=== PATIENT | female | born 1995 | race Caucasian/White ===

== ENCOUNTER 2017-02-25 13:50 | Emergency (ER) | payer OTHER ==
[~2017-02-25] VITALS: Ht 162.6 cm; Wt 93.0 kg
[~2017-02-25 13:50] MED LIST: DENIES
[2017-02-25 13:53] VITALS: Ht 162.6 cm; Wt 93.0 kg
[2017-02-25] MEDS ORDERED: ACETAMINOPHEN 325 MG TAB PO STA (14:08)
[2017-02-25] MEDS ORDERED: SOD CHLORIDE 0.9% 1,000 ML IV ONE (14:30)
[2017-02-25] MEDS ORDERED: IBUPROFEN 600 MG TAB PO ONE (14:30)
[2017-02-25 15:01] LABS: ADD SCAN DIFF NO
--- NOTE | 2017-02-25 15:03 | RADRPT ---
PROCEDURE: XR Chest. CLINICAL INDICATION: Sepsis TECHNIQUE: Single frontal chest x-ray. COMPARISON: None. FINDINGS: The lungs are clear of acute infiltrates, edema, effusions, or masses.. The cardiomediastinal silho uette is unremarkable. The osseous structures are intact. IMPRESSION: No acute cardiopulmonary disease. RPTAT: QQ .Austin Al MD, MD Date Time Electronically viewed and signed by .Austin Al MD, MD on 02/25/2017 15:03 .L/
[2017-02-25 15:09] LABS: BASOPHILS % 0.2 % (0.0-2.0); EOSINOPHILS # 0.1 10^3/ul (0.0-0.5); EOSINOPHILS % 0.5 % (0.0-7.0); HEMATOCRIT 43.2 % (37.0-47.0); HEMOGLOBIN 14.4 g/dl (12.0-16.0); LYMPHOCYTES # 1.6 10^3/ul (0.8-2.9); LYMPHOCYTES % 12.7 % (15.0-51.0); MEAN CORPUSCULAR HEMOGLOBIN 28.9 pg (29.0-33.0); MEAN CORPUSCULAR HGB CONC 33.3 g/dl (32.0-37.0); MEAN CORPUSCULAR VOLUME 86.6 fl (82.0-101.0); MEAN PLATELET VOLUME 9.9 fl (7.4-10.4); MONOCYTE # 1.4 10^3/ul (0.3-0.9); MONOCYTES % 11.6 % (0.0-11.0); NEUTROPHIL # 9.2 10^3/ul (1.6-7.5); NEUTROPHILS % 74.8 % (39.0-77.0); PLATELET COUNT 304 10^3/UL (140-415); RED BLOOD COUNT 4.99 10^6/ul (4.20-5.40); RED CELL DISTRIBUTION WIDTH 12.6 % (11.5-14.5); WHITE BLOOD COUNT 12.3 10^3/ul (4.8-10.8)
[2017-02-25 15:16] LABS: ADD UMIC NO; URINE BILIRUBIN (Dip) NEGATIVE (NEGATIVE); URINE BLOOD (Dip) NEGATIVE (NEGATIVE); URINE COLOR LT. YELLOW (YELLOW); URINE GLUCOSE (Dip) NEGATIVE (NEGATIVE); URINE KETONES (Dip) NEGATIVE (NEGATIVE); URINE LEUKOCYTE ESTERASE (Dip) NEGATIVE (NEGATIVE); URINE NITRITE (Dip) NEGATIVE (NEGATIVE); URINE TOTAL PROTEIN (Dip) NEGATIVE (NEGATIVE); URINE UROBILINOGEN (Dip) 0.2 E.U./dL (0.1-1.0)
[2017-02-25 15:31] LABS: ALBUMIN/GLOBULIN RATIO 1.37
[2017-02-25 15:37] LABS: ALBUMIN 5.1 g/dl (3.3-4.9); BILIRUBIN,INDIRECT 0.4 mg/dl (0-1.1); BILIRUBIN,TOTAL 0.4 mg/dl (0.2-1.3); CALCIUM 9.6 mg/dl (8.4-10.2); CREATININE 0.65 mg/dl (0.44-1.00); POTASSIUM 4.6 mmol/L (3.5-5.1); TOTAL PROTEIN 8.8 g/dl (6.1-8.1)
[2017-02-25] MEDS ORDERED: NAPR-260 PO (16:07)
[2017-02-25 16:11] LABS: INR 1.23; PROTIME 15.6 Sec (12.2-14.2); PT RATIO 1.2
[2017-02-25 16:12] LABS: PARTIAL THROMBOPLASTIN TIME 33.7 Sec (25.0-35.0)
[2017-02-25 16:19] VITALS: BP 124/60; PULSE 111; RESP 18; TEMP 100.7
[2017-02-25] MEDS ORDERED: HYDROCODONE/APAP (5/325) TAB PO ONE (16:30)
--- NOTE | 2017-02-25 16:34 | ERD ---
ER Documentation Chief Complaint Date/Time DATE: 02/25/17 TIME: 16:24 Chief Complaint fever , bodyache , headache , st x 2 days HPI This patient is a 21-year-old female presenting to the emergency department complaining of severe sore throat, intermittent fevers and bilateral ear pain ongoing for the past 3 days. She is also had a headache for the past 2 days. She denies urinary symptoms, dizziness, chest pain, or other symptoms. ROS All systems reviewed and are negative except as per history of present illness. Medications Home Meds Active Scripts Naproxen* (Naprosyn*) 500 Mg Tablet, 500 MG PO BID Y for PAIN AND/OR INFLAMMATION, #30 TAB Prov:CHANDANA CASTANO PA-C 02/25/17 Reported Medications [Denies] No Conflict Check 08/25/10 Allergies Allergies: Coded Allergies: No Known Allergies (Verified Allergy, Mild, 08/25/10) PMhx/Soc Medical and Surgical Hx: pt denies Medical Hx, pt denies Surgical Hx History of Surgery: No Anesthesia Reaction: No Hx Neurological Disorder: No Hx Respiratory Disorders: No Hx Cardiac Disorders: No Hx Psychiatric Problems: No Hx Miscellaneous Medical Probl: No Hx Alcohol Use: No Hx Substance Use: No Hx Tobacco Use: No Smoking Status: Never smoker Physical Exam Vitals Vital Signs Date Time Temp Pulse Resp B/P Pulse Ox O2 Delivery O2 Flow Rate FiO2 02/25/17 16:19 100.7 111 18 124/60 97 Room Air 02/25/17 13:53 103.4 120 18 146/93 99 Physical Exam Const: Nontoxic, well-appearing female in no acute distress. Head: Atraumatic Eyes: Normal Conjunctiva ENT: Normal External Ears, Nose and Mouth. Neck: Full range of motion..~ No meningismus. Resp: Clear to auscultation bilaterally Cardio: Regular rate and rhythm, no murmurs Abd: Soft, non tender, non distended. Normal bowel sounds Skin: No petechiae or rashes Back: No midline or flank tenderness Ext: No cyanosis, or edema Neur: Awake and alert Psych: Normal Mood and Affect Result Diagram: 02/25/17 1450 02/25/17 1450 Results 24 hrs Laboratory Tests Test 02/25/17 14:50 02/25/17 14:52 White Blood Count 12.310^3/ul Red Blood Count 4.9910^6/ul Hemoglobin 14.4g/dl Hematocrit 43.2% Mean Corpuscular Volume 86.6fl Mean Corpuscular Hemoglobin 28.9pg Mean Corpuscular Hemoglobin Concent 33.3g/dl Red Cell Distribution Width 12.6% Platelet Count 86327^3/UL Mean Platelet Volume 9.9fl Neutrophils % 74.8% Lymphocytes % 12.7% Monocytes % 11.6% Eosinophils % 0.5% Basophils % 0.2% Nucleated Red Blood Cells % 0.0/100WBC Neutrophils # 9.210^3/ul Lymphocytes # 1.610^3/ul Monocytes # 1.410^3/ul Eosinophils # 0.110^3/ul Basophils # 0.010^3/ul Nucleated Red Blood Cells # 0.010^3/ul Prothrombin Time 15.6Sec Prothrombin Time Ratio 1.2 INR International Normalized Ratio 1.23 Activated Partial Thromboplast Time 33.7Sec Sodium Level 141mmol/L Potassium Level 4.6mmol/L Chloride Level 105mmol/L Carbon Dioxide Level 21mmol/L Anion Gap 20 Blood Urea Nitrogen 8mg/dl Creatinine 0.65mg/dl Glucose Level 91mg/dl Lactic Acid Level 1.5mmol/L Calcium Level 9.6mg/dl Total Bilirubin 0.4mg/dl Direct Bilirubin 0.00mg/dl Indirect Bilirubin 0.4mg/dl Aspartate Amino Transf (AST/SGOT) 50IU/L Alanine Aminotransferase (ALT/SGPT) 38IU/L Alkaline Phosphatase 101IU/L Total Protein 8.8g/dl Albumin 5.1g/dl Globulin 3.70g/dl Albumin/Globulin Ratio 1.37 Urine Color LT. YELLOW Urine Clarity CLEAR Urine pH 5.5 Urine Specific [place] 1.025 Urine Ketones NEGATIVE Urine Nitrite NEGATIVE Urine Bilirubin NEGATIVE Urine Urobilinogen 0.2 E.U./dL Urine Leukocyte Esterase NEGATIVE Urine Hemoglobin NEGATIVE Urine Glucose NEGATIVE% Urine Total Protein NEGATIVE Current Medications Medications (Trade) Dose Ordered Sig/[place] Route PRN Reason Start Time Stop Time Status Last Admin Dose Admin Acetaminophen (Tylenol Tab) 650 mg ONCE STAT PO 02/25/17 14:08 02/25/17 14:14 DC 02/25/17 14:37 Ibuprofen 600 mg 600 mg ONCE ONCE PO 02/25/17 14:30 02/25/17 14:31 DC 02/25/17 14:37 Sodium Chloride (NS) 1,000 ml @ 1,000 mls/hr Q1H ONCE IV 02/25/17 14:30 02/25/17 15:29 DC 02/25/17 14:38 Acetaminophen/ Hydrocodone Bitart ([place] (5/325)) 1 tab ONCE ONCE PO 02/25/17 16:30 02/25/17 16:31 02/25/17 16:11 [place] [id number] Radiology Main Line: [phone] DIAGNOSTIC IMAGING REPORT Patient: FAITH PEÑA : 1995 Age: 21 Sex: F MR #: [id number] DOS: 02/25/17 1408 Ordering MD: CHANDANA CASTANO PA-C Location: [facility] Room/Bed: PROCEDURE: XR Chest. CLINICAL INDICATION: Sepsis TECHNIQUE: Single frontal chest x-ray. COMPARISON: None. FINDINGS: The lungs are clear of acute infiltrates, edema, effusions, or masses.. The cardiomediastinal silhouette is unremarkable. The osseous structures are intact. IMPRESSION: No acute cardiopulmonary disease. RPTAT: QQ .Austin Al MD, MD Date Time Electronically viewed and signed by .Austin Al MD, on 02/25/2017 15:03 .L/ CC: CHANDANA CASTANO PA-C Procedures/[facility] EMERGENCY DEPARTMENT COURSE / MEDICAL DECISION MAKING: This is a 21-year-old female who comes to the emergency room secondary to complaints of fevers, sore throat, bilateral ear pain, and headache. The patient was given p.o. [place], IV fluids, p.o. ibuprofen, and p.o. Tylenol in the department. On re-evaluation, the patient was feeling improved. Lab results reviewed and showed slight leukocytosis with left shift but not significant. CMP showed no significant acute abnormalities. Urinalysis was negative for proteinuria, infection, and hematuria. Influenza a and B swab negative. Rapid strep antigen negative. Radiology: Chest x-ray: IMPRESSION: No acute cardiopulmonary disease. The primary diagnosis is upper respiratory infection of unclear etiology. Secondary diagnosis is fever I have low suspicion for acute abdomen, sepsis, tonsillitis, otitis media, peritonsillar abscess, or other emergent conditions at this time. Discharge: I have discussed the lab results and diagnostic findings with the patient and answered any questions or concerns. The patient was discharged with a prescription for naproxen. The patient was advised to followup with their PMD in 1-2 days and to return to the Emergency Department if there are any new or worsening symptoms. The patient understood and agreed with the diagnosis, treatment and plan. The patient is stable for discharge at this time. Departure Diagnosis: Primary Impression: Upper respiratory infection URI type: unspecified URI Qualified Code: J06.9 - Upper respiratory tract infection, unspecified type Additional Impression: Fever Fever type: unspecified Qualified Code: R50.9 - Fever, unspecified fever cause Condition: Fair Patient Instructions: Preventing Common Respiratory Infections, Fever Control ( Adult) Additional Instructions: Follow up with your PCP within the next 1-3 days for a repeat evaluation and a possible referral to a specialist, if required. Return the the emergency department immediately if symptoms worsen or change. If you have any questions regarding medications, ask your pharmacist or us before you leave. If any adverse reactions, occur while taking your medications, discontinue the treatment and return to the emergency department immediately. If any new or worsening symptoms, uncontrolled fevers, or other unexplained symptoms occur, return to the emergency department immediately. Take your medications as directed, and complete the entire course of treatment. CHANDANA CASTANO PA-C Feb 25, 2017 16:34
== END 2017-02-25 16:20 | disposition home or self-care (01) ==
LOC: FTE 13:50
DX: J06.9 Acute upper respiratory infection, unspecified (principal)
CPT/HCPCS: 71010; 80053; 81003; 83605; 85025; 85610; 85730; 86308; 87040; 87086; 87400; 87880; J7030; Z7610; 36415